=== PATIENT | female | born 1975 | race Caucasian/White ===

== ENCOUNTER 2025-01-13 23:17 | Emergency (ER) | payer OTHER, SELFPAY ==
[2025-01-13 23:18] VITALS: BP 134/64
[2025-01-14] MEDS: TYLENOL 1000 MG PO (00:39)
--- NOTE | 2025-01-14 00:40 | ED.GENMED ---
History of Present Illness
General
Chief Complaint: Musculo-Skeletal Complaint
Source: patient
Exam Limitations: none
Time Seen by Provider: 01/13/25 23:26
Nursing documentation reviewed up to this point in time: agreed with
History of Present Illness
History of Present Illness:
Patient is a 49-year-old female who presents to the emergency department for evaluation of right ankle injury. She states she was walking down 2 steps in her home when she inverted her right ankle and then landed awkwardly on her right leg. She did
not hit her head or lose consciousness. She was alone at the time however was able to call a friend for help her transported her to the emergency department. She has been unable to bear weight since injury.
She has significant pain in her right ankle. She denies any pain in knee.
No other injuries sustained during fall. She is no ton any oral anticoagulation.
Past History
Past History
ED Past Medical History: Asthma and Other (Allergies to nuts)
ED Past Surgical History: None
Social History
Personal: Single
Living: alone
Employment: Employed
Review of Systems
Review of Systems
Allergies reviewed?: Yes
All Other Systems: ROS reviewed and negative except as documented in HPI and ROS
Phy Exam
Physical Exam
Physical Exam:
Vitals: Hypertensive, otherwise vital signs stable. Afebrile
General: Patient is well appearing, no acute distress
Skin: Warm and dry, no rashes or lesions
Head: Normocephalic, atraumatic
Eyes: Sclera nonicteric. EOMs intact. No nystagmus.
Throat: Protecting airway
Neck: Normal ROM, no cervical spine tenderness, no meningismus
Cardiac: Regular rate and rhythm, no murmurs.
Pulm: Normal respiratory effort, no wheezes, rales, rhonchi heard on exam
.
Abdomen: No abdominal tenderness.
Extremities: Edema of right ankle, most significant around lateral malleolus. Point tenderness to both lateral and medial malleolus of right ankle. No skin tenting. No tenderness at base of 5th metatarsal, head of fibula, calcaneous. No tenderness
of midfoot or hindfoot. Palpable 2+ DP pulse of RLE with normal sensation and capillary refill. Achilles tendon intact. Very limited ROM in right ankle secondary to pain. Full ROM in right knee.
Neuro: AAOx3. CN II-XII intact. No focal neurologic deficits.
Psychiatric: Normal affect.
Course
Orders/Labs/Results
Orders:
Orders
01/13/25 23:22
Ankle, Right 3 view CR [CR Ankle - Right Min 3 Views *] Urgent
Comment:
Reason For Exam: FALL
01/14/25 00:25
Acetaminophen [Tylenol] 1,000 mg PO NOW STA
01/14/25 00:26
Splints/Slings/Crut- Treatment ONCE
Location: Right
Type of Splint: Short Leg
Comment: w/ stirrup
Vital Signs
Initial and Last Documented VS:
Initial Vital Signs
Temp Pulse Resp BP Pulse Ox
98 F 54 26 134/64 99
01/13/25 23:18 01/13/25 23:18 01/13/25 23:18 01/13/25 23:18 01/13/25 23:18
Last Documented Vital Signs
Temp Pulse Resp BP Pulse Ox
98 F 54 26 134/64 99
01/13/25 23:18 01/13/25 23:18 01/13/25 23:18 01/13/25 23:18 01/14/25 00:42
Procedures
Splinting/Sling Placement
Right Ankle:
Procedure completed by: Ronda Estrada PA-C
Pre-splint extermity exam: neurovascular intact
Type of splint: posterior short leg (w/ stirrup)
Splint material: fiberglass
Splint checked by provider?: Yes
Normal distal neurovascular exam?: Yes
MDM/Problems Addressed
Differential Diagnosis Includes:
Not limited to: ankle fracture, ankle dislocation, achilles tendon rupture, ankle sprain, etc
MDM/Problems Addressed:
49-year-old female presenting with right ankle injury, which occurred tonight at home. She inverted her right ankle while walking down the stairs and then fell awkwardly on leg. No head strike or other associated injuries. Unable to bear weight.
Vitals as above.
On exam � patient has swelling and focal tenderness of right ankle both at medial and lateral malleolus. There is no skin tenting. She has excellent sensation and palpable distal pulses in right foot. No pain at head of right fibula or base of right
fifth metatarsal.
X-ray reveals right ankle fracture, at least distal fibula, although I suspect additional fracture of proximal tibia. Imaging was reviewed with attending physician.
Patient placed in posterior short leg splint with stirrup and provided crutches. She tolerated procedure well. Right lower extremity remains neurovascularly intact. She is ambulating with crutches and I feel stable for discharge home w/ outpatient
orthopedic follow up. Strict return precautions discussed.
Chronic conditions affecting care:
N/A
Acute Exacerbation and/or Progression of Chronic Illness:
N/A
*Radiology
Radiology exam reviewed: preliminary read by ED provider (right ankle xray reviewed by me - distal fibula fracture with suspected additional fx of proximal tibia)
*Pulse Oximetry
SaO2: 99
Patient hypoxic: no
*EKG
Interpreted by ED Provider?: NA
*Coal Pipeline Operator Interpretation
Rate: Coal Pipeline Operator- N/A
*Critical Care Note
Total Time (30-74mins, 75-104mins- exclusive of procedures): Not Applicable
ED Attending Note
-
Portions of this chart may have been created with voice recognition software.� Occasional wrong word or��sound alike� substitutions may have occurred due to the inherent limitations of voice recognition software.
Discharge Plan
Departure
Patient Disposition: Home (Routine Discharge)
Date of Disposition: 01/14/25
Time of Disposition: 01:07
Patient with high blood pressure during this ER visit?: Yes
Condition: Good
Discharge Problem:
Ankle fracture, right
Instructions: How to Use Crutches, Ankle Fracture (DC), Splint Care
Prescriptions:
No Action
epinephrine [EpiPen] 0.3 MG/0.3/SYRINGE auto-injector
0.3 mg IM PRN Qty: 1 2RF
Referrals:
Jose Rojas MD [Active, Orthopedics] - Follow up in 2-3 days
UNKNOWN - PT DOES,NOT KNOW [Family Provider]
Activity Restrictions/Additional Instructions:
RETURN TO THE EMERGENCY DEPARTMENT WITH ANY INTRACTABLE PAIN, NUMBNESS/TINGLING IN EXTREMITY, WORSENING IN CURRENT SYMPTOMS, OR ANY OTHER CONCERNS
- Your x-ray showed a fracture of your right ankle. Keep splint on and remain nonweightbearing until seen by orthopedics. You can use crutches to assist with ambulation.
- Continue to ice, elevate your right ankle. You can take Tylenol and/or Motrin as needed for pain.
- Follow-up with orthopedics for further evaluation/management of your ankle fracture. Contact information has been provided for you above.
Monitor your symptoms closely and return to the emergency department with any acute worsening/new symptoms or any other concerns
Interventions
Interventions:
*Risk Screen - Suicide Last Done: 01/13/25 23:18
*General Assessment Last Done: 01/13/25 23:36
*Neglect/Abuse Screening Last Done: 01/13/25 23:18
*ED- Fall Risk Assessment Last Done: 01/13/25 23:36
*ED COVID-19 Vaccine History Last Done: 01/13/25 23:36
*ED Influenza Vaccine History Last Done: 01/13/25 23:36
*Nursing Disposition Last Done: 01/14/25 01:17
ED-Musculoskeletal Assessment Last Done: 01/13/25 23:36
Discharge Date and Time
Discharge Date/Time: 01/14/25 01:18
Print Language: FRISIAN
== END 2025-01-14 01:18 | disposition home or self-care (01) ==
LOC: EMR 23:17
PROVIDERS: EMERGENCY PHYSICIAN Student in an Organized Health Care Education/Training Program
DX: S82.831A Other fracture of upper and lower end of right fibula, initial encounter for closed fracture (principal); R60.0 Localized edema; X50.1XXA Overexertion from prolonged static or awkward postures, initial encounter; R03.0 Elevated blood-pressure reading, without diagnosis of hypertension; J45.909 Unspecified asthma, uncomplicated; Z86.16 Personal history of COVID-19; Z91.018 Allergy to other foods
CPT/HCPCS: 99283; 29515; 73610

== ENCOUNTER 2025-01-17 06:13 | Day surgery (SDC) | payer OTHER, SELFPAY ==
[2025-01-17] VITALS (9 sets, daily range): BP systolic 120–147; BP diastolic 59–86; BMI 22.6
[2025-01-17] MEDS: TYLENOL PO (11:45)
[2025-01-17] MEDS: NORMOSOL-R/PLASMALYTE-A 1000 IV (14:45)
[2025-01-17] MEDS: CELEBREX 200 MG PO (14:45)
[2025-01-17] MEDS: TYLENOL 1000 MG PO (17:58)
[2025-01-17] MEDS: ROXICODONE 5 MG PO (21:35)
--- NOTE | 2025-01-19 09:42 | OR.RPT ---
Operative Report
Operative Report
OPERATIVE REPORT
Patient Name: Elke Cordova

Date of Surgery: 01/17/2025
Surgeon: Osiel Escamilla DPM
Assistants: Osiel Salvador DPM
Preoperative Diagnosis:
Right trimalleolar ankle fracture with syndesmotic disruption
Postoperative Diagnosis:
Same as preoperative
Procedures Performed:
Open reduction and internal fixation (ORIF) of right trimalleolar ankle fracture � CPT 66127
Open treatment of syndesmosis disruption with internal fixation � CPT 84822
Anesthesia: General anesthesia with 20ccs of local infiltration of 0.5% Marcaine plain
Hemostasis: Pneumatic thigh tourniquet inflated to 300mmHg for the entirety of the procedure
Estimated Blood Loss: Minimal (<75 mL)
Implants Used:
Spenser anatomic distal fibular plate with combination of locking and nonlocking 3.5 mm screws
Two Arthrex TightRopes
Specimens: None
Complications: None
Indications for Surgery:
The patient is a 49-year-old female who sustained a right trimalleolar ankle fracture approximately four days prior after a fall. Radiograph imaging demonstrated a displaced fibular fracture, a grossly widened medial clear space consistent with
syndesmotic/deltoid disruption, and a small, nondisplaced posterior malleolus fracture that did not require fixation.
Given the unstable nature of the injury with displacement and syndesmotic disruption, open reduction and internal fixation with syndesmotic stabilization was indicated to restore anatomic alignment, stability, and function. We reviewed all risks,
benefits, and alternatives of surgical management and patient consented for the procedure.
Description of Procedure:
After verification of the patient, operative site, and consent, the patient was brought to the operating room and placed supine on the operating table with a bump under the right hip. A pneumatic thigh tourniquet was applied and inflated following
exsanguination. The right lower extremity was prepped and draped in the usual sterile fashion.
A longitudinal incision was made over the lateral aspect of the distal fibula, centered over the fracture site. Careful blunt dissection was carried down through subcutaneous tissue with protection of the superficial peroneal nerve. The fracture
site was identified, debrided of hematoma and interposed tissue, and anatomically reduced using a reduction clamp.
The fibular fracture was a displaced, oblique-type distal fracture. Once anatomic reduction was achieved, the bone was temporarily fixated with K-wires. A 3.5mm interfragmentary screw was then placed and achieved excellent compression across the
fracture. The interfragmentary screw was later removed due to interference with syndesmotic fixation. Next, a CarbonFlow anatomic fibular plate was applied and fixated using a combination of locking and nonlocking 3.5 mm screws. Fluoroscopy confirmed
appropriate length, rotation, and reduction of the distal fibula.
Attention was then directed to the syndesmosis. Intraoperative stress fluoroscopy demonstrated persistent widening of the medial clear space and syndesmotic diastasis, confirming syndesmotic instability.
Two Arthrex TightRope devices were placed through the fibular plate in standard fashion across the distal tibiofibular joint. Each TightRope was tensioned sequentially under direct fluoroscopic visualization, achieving anatomic reduction of the
syndesmosis and moravian of the medial clear space.
The posterior malleolus fracture was small, nondisplaced, and not involving a significant portion of the articular surface, and therefore did not require fixation.
The wound was copiously irrigated with sterile saline. Layered closure was performed using 2-0 Vicryl for deep tissue, 3-0 Vicryl for subcutaneous tissue, and 3-0 Prolene for skin closure. Sterile dressings were applied, and the extremity was
immobilized in a well-padded posterior splint with the ankle in neutral position.
The tourniquet was deflated, and immediate hyperemic response was noted to all digits. The patient was then aroused from anesthesia and brought to the recovery area in good condition.
Postoperative Plan:
Strict non-weightbearing to the right lower extremity in a posterior splint
Keep dressing clean, dry, and intact
Elevation and ice to control swelling
Follow-up in 10�14 days for wound check and suture removal
Serial radiographs to monitor fracture and syndesmosis healing
Gradual progression to boot and partial weightbearing as healing allows
== END 2025-01-17 21:54 | disposition home or self-care (01) ==
LOC: SDS 06:13
PROVIDERS: ATTENDING PHYSICIAN Student in an Organized Health Care Education/Training Program
DX: S82.851A Displaced trimalleolar fracture of right lower leg, initial encounter for closed fracture (principal); S93.431A Sprain of tibiofibular ligament of right ankle, initial encounter; X58.XXXA Exposure to other specified factors, initial encounter
CPT/HCPCS: 27822; 73610; 76000; C1713